=== PATIENT | male | born 1945 | race Caucasian/White ===

== ENCOUNTER 2019-10-20 05:18 | Outpatient (CLI) | payer OTHER ==
[2019-10-20 16:52] LABS: Anion Gap 13 mmol/L (10-20); BUN (Urea Nitrogen) 13 mg/dL (8.4-25.7); Calc. Creatinine Clearance 0 mL/min (70-130); Calcium 8.8 mg/dL (7.8-10.44); Carbon Dioxide 24 mmol/L (23-31); Chloride 104 mmol/L (98-107); Estimated GFR-MDRD 49; Glucose 95 mg/dL (83-110); Potassium 5.3 mmol/L (3.5-5.1); Sodium 136 mmol/L (136-145)
[2019-10-21 12:34] LABS: SARS-CoV-2 MS2 Positive; SARS-CoV-2 N Gene Negative; SARS-CoV-2 S Gene Negative; SARS-CoV-2 orf1ab Negative
== END 2019-10-20 05:19 | disposition home or self-care (01) ==
LOC: LABBT 05:18
PROVIDERS: ATTEND Neurological Surgery
DX: Z01.812 Encounter for preprocedural laboratory examination (principal); Z11.59 Encounter for screening for other viral diseases; M43.16 Spondylolisthesis, lumbar region
CPT/HCPCS: 80048; 87635; U0003

== ENCOUNTER 2019-10-25 07:13 | Day surgery (SDC) | payer OTHER ==
[2019-10-19 15:33] VITALS: BMI 25.7
--- NOTE | 2019-10-24 19:35 | HP ---
HISTORY OF PRESENT ILLNESS: Mr. Paredes is a man referred to us today for evaluation and discussion of mid lower back pain. This started around 3 years ago while playing golf. He states he slipped on a hill, grabbed a golf cart, and his legs out from under him. He thought he just twisted his back. However, he had ongoing severe back pain, went to his primary care doctor 3 weeks after injury. He thought there was not much to do at that time. He reports no pain at all when sitting. His pain then becomes severe and starts to affect his leg with walking. He also feels that he cannot play golfing any more because of this. He has attended therapy, medications, and several injections including facet blocks with his pain management physicians at [facility] in [place]. While injections have gone a long way in helping his back pain more tolerable, he still has significant symptoms. He does have neuropathy, and as such, feels that it is hard to definitively say whether walking, but does state that he has fatigue in the lateral hip and buttock and thighs as well as pain there when walking. MRI of the thoracic spine reveals anterior wedge compression fracture T10 with no bony retropulsion. This does not appear concerning as there is also no edema in the bone suggesting this is remote and healed. In his lumbar spine, however, he has rather profound spondylotic disease from L3 through L5, specifically grade 1 anterolisthesis at L4-5. This appears they could very well be a significant contributor to the symptoms that he has been experiencing. Examination is deferred secondary to COVID-19 tele health visit. PAST MEDICAL HISTORY: Significant for hypercholesterolemia, chronic pain syndrome, diabetes, hypertension, erectile dysfunction. PAST SURGICAL HISTORY: Cervical spinal fusion and cholecystectomy. MEDICATIONS: 1. Diclofenac. 2. Fluorouracil cream topical. 3. Fluticasone spray. 4. Gabapentin. 5. Glipizide. 6. Normal insulin. 7. Metoprolol. 8. Naproxen. 9. Sildenafil. 10. Simvastatin. 11. Losartan. 12. Metformin. 13. Aspirin. ALLERGIES: TO LISINOPRIL. ASSESSMENT: Lumbar spinal stenosis, spondylolisthesis, lumbar radiculopathy, neurogenic claudication. PLAN: Dr. Mckeon met with the patient, reviewed imaging, and advocated for an L4-5 fusion. He explained the patient risks, benefits, and alternatives to the procedure. The patient expressed understanding and elected to move forward with surgery as discussed. I do believe the patient is mentally competent and capable of making medical decisions for himself. We will move forward with surgery as planned. Job ID: [id number]
[2019-10-25] MEDS ORDERED: Bupivacaine PF 0.5% 30 ML VIAL ONE (09:46)
[2019-10-25] MEDS ORDERED: EPINEPHrine 1 MG/ML AMP ONE (09:46)
[2019-10-25] MEDS ORDERED: Fentanyl 100 MCG/2 ML VIAL ONE ×2 (10:28→13:32)
[2019-10-25] MEDS ORDERED: EPHEDRINE 25 MG/5 ML SYRINGE ONE (10:43)
[2019-10-25] MEDS ORDERED: Esmolol 100 MG/10 ML VIAL ONE (10:43)
[2019-10-25] MEDS ORDERED: Metoclopramide HCl 10 MG/2 ML VIAL ONE (10:43)
[2019-10-25] MEDS ORDERED: Ondansetron PF 4 MG/2 ML Vial ONE (10:43)
[2019-10-25] MEDS ORDERED: PROPOFOL 200 MG/20 ML VIAL ONE (10:43)
[2019-10-25] MEDS ORDERED: Lidocaine 1% PF 5 ML VIAL ONE (10:43)
[2019-10-25] MEDS ORDERED: Dexamethasone 20 MG/5 ML VIAL ONE (10:43)
[2019-10-25] MEDS ORDERED: Rocuronium Bromide 10 MG/ML (10ML VIAL) ONE (10:43)
[2019-10-25] MEDS ORDERED: SUGAMMADEX SODIUM 200 MG/2 ML VIAL ONE (12:27)
[2019-10-25] MEDS ORDERED: HYDROmorphone 2 MG/ML VIAL ONE (12:41)
--- NOTE | 2019-10-25 13:01 | OP ---
DATE OF PROCEDURE: 10/25/2019 [employer]: Honorio Palma PA-C INDICATION: Pain. DIAGNOSIS: Lumbar spondylolisthesis of L4 upon L5. PROCEDURES PERFORMED: Bilateral L4-L5 decompression, bilateral L4-L5 posterolateral instrumented fusion, placement of allograft, and placement of autograft. ANESTHESIA: General. DESCRIPTION OF PROCEDURE: The patient was brought into the operating room and placed under general anesthesia. He was flipped from the supine to prone position on the operating room table. A linear incision was planned over L4-L5. After prepping and draping and after an appropriate preoperative pause, the incision was created. The soft tissues were swept away from midline. Self-retaining retractors were placed in the wound for optimal exposure. After confirming the appropriate level with C-arm fluoroscopy, high-speed cutting drill bit and 2, 3, and 4 mm Kerrisons were used to perform bilateral laminectomies at L4-L5 to decompress the lateral recesses and expose the pedicles at L4 and L5. Pedicle screws were then placed in the pedicles at L4 and L5 bilaterally with the aid of C-arm fluoroscopy. An intraoperative 3D CT scan was then performed to confirm appropriate placement of hardware. Rods were then placed across the screw heads and final tightened. Allograft and autograft material were placed in the lateral confines of the instrumentation construct. The wound was irrigated. Hemostasis was maintained throughout. The wound was then closed in anatomic layers, and a pressure dressing was applied. There were no known procedural complications. Job ID: [id number]
[2019-10-25] MEDS ORDERED: Tamsulosin HCl 0.4 MG CAP ONE (13:30)
[2019-10-25] MEDS ORDERED: Ondansetron ODT 4 MG TAB ONE (17:46)
== END 2019-10-25 17:46 | disposition home or self-care (01) ==
LOC: SDC 07:13
PROVIDERS: ATTEND Neurological Surgery
PROC: 0SB20ZZ Excision of Lumbar Vertebral Disc, Open Approach (ICD-10-PCS; principal; 2019-10-25)
PROC: 0RB90ZZ Excision of Thoracic Vertebral Disc, Open Approach (ICD-10-PCS; principal; 2019-10-25)
PROC: 0SG007J Fusion of Lumbar Vertebral Joint with Autologous Tissue Substitute, Posterior Approach, Anterior Column, Open Approach (ICD-10-PCS; principal; 2019-10-25)
DX: M43.16 Spondylolisthesis, lumbar region (principal); M48.062 Spinal stenosis, lumbar region with neurogenic claudication; M54.16 Radiculopathy, lumbar region; E78.00 Pure hypercholesterolemia, unspecified; G89.4 Chronic pain syndrome; E11.9 Type 2 diabetes mellitus without complications; I10 Essential (primary) hypertension; N52.9 Male erectile dysfunction, unspecified; Z79.4 Long term (current) use of insulin; Z79.82 Long term (current) use of aspirin; Z79.899 Other long term (current) drug therapy
CPT/HCPCS: 36416; 51798; 76000; 93005; 93010; C1713; C1768; J0171; J0690; J1100; J1170; J2405; J2704; J2765; J3010; Q0162; S0020